=== PATIENT | male | born 1980 | race Caucasian/White ===

== ENCOUNTER 2021-09-09 18:48 | Emergency (ER) | payer OTHER ==
[2021-09-09] MEDS ORDERED: Ketorolac 30 MG/ML SDV IM ONE (20:08)
[2021-09-09] MEDS ORDERED: Doxycycline 100 MG Cap PO ONE (20:19)
== END 2021-09-09 20:37 | disposition home or self-care (01) ==
LOC: MW.ED 18:48
DX: L03.012 Cellulitis of left finger (principal); K21.9 Gastro-esophageal reflux disease without esophagitis; I48.91 Unspecified atrial fibrillation; I10 Essential (primary) hypertension; Z88.2 Allergy status to sulfonamides; Z88.5 Allergy status to narcotic agent; Z79.82 Long term (current) use of aspirin; Z79.899 Other long term (current) drug therapy
CPT/HCPCS: 96372; 99282; 99283; A9270-GY; J1885